=== PATIENT | male | born 1975 | race Caucasian/White ===

== ENCOUNTER 2017-05-25 06:04 | Day surgery (SDC) | payer OTHER ==
[~2017-05-25] VITALS: Ht 165.1 cm; Wt 60.3 kg
[2017-05-25] MEDS ORDERED: ZANTAC (07:07)
[2017-05-25] MEDS ORDERED: FAMOTIDINE (07:07)
--- NOTE | 2017-05-25 07:42 | OPPN ---
Date/Time of Note Date/Time of Note DATE: 05/25/17 TIME: 07:34 Operative Report Preoperative Diagnosis Abdominal pain Postoperative Diagnosis Gastritis with erosions Operation/Procedure Performed Esophagogastroduodenoscopy and biopsy Surgeon see signature line expanded function dental assistant None Anesthesia: moderate sedation Estimated blood loss: none Transfusion Required none Specimen Gastric mucosal biopsy Grafts/Implants none Complications none DONOVAN POON MD May 25, 2017 07:42
--- NOTE | 2017-05-25 07:42 | OPPN ---
Date/Time of Note Date/Time of Note DATE: 05/25/17 TIME: 07:34 Operative Report Preoperative Diagnosis Abdominal pain Postoperative Diagnosis Gastritis with erosions Operation/Procedure Performed Esophagogastroduodenoscopy and biopsy Surgeon see signature line assistance specialist None Anesthesia: moderate sedation Estimated blood loss: none Transfusion Required none Specimen Gastric mucosal biopsy Grafts/Implants none Complications none DONOVAN POON MD May 25, 2017 07:42
--- NOTE | 2017-05-25 07:42 | OPPN ---
Date/Time of Note Date/Time of Note DATE: 05/25/17 TIME: 07:34 Operative Report Preoperative Diagnosis Abdominal pain Postoperative Diagnosis Gastritis with erosions Operation/Procedure Performed Esophagogastroduodenoscopy and biopsy Surgeon see signature line recreation assistant None Anesthesia: moderate sedation Estimated blood loss: none Transfusion Required none Specimen Gastric mucosal biopsy Grafts/Implants none Complications none DONOVAN POON MD May 25, 2017 07:42
[2017-05-25] MEDS ORDERED: FENTAnyl 50 MCG/ML VIAL ONE (07:50)
[2017-05-25] MEDS ORDERED: MIDAZOLAM 1 MG/ML 2 ML INJ ONE ×2 (07:50)
[2017-05-25 08:05] VITALS: BP 99/59; PULSE 70; RESP 16
--- NOTE | 2017-05-25 09:39 | GILP ---
DATE OF PROCEDURE: NAME OF PROCEDURES: Esophagogastroduodenoscopy and biopsy. SURGEON: Donovan Delgado MD PREOPERATIVE DIAGNOSIS: Abdominal pain. POSTOPERATIVE DIAGNOSES 1. Gastritis with erosions. 2. Gastric mucosal biopsies were taken for Helicobacter pylori test. INDICATION FOR THE PROCEDURE: Mr. Ochoa Cleveland is a 41-year-old male patient who had upper abdomin al pain, not responding to therapy. The patient was scheduled for endoscopic examination for furthe r evaluation. The procedure and possible complications were well explained to the patient, he understood and conse nted to the procedure. DESCRIPTION OF PROCEDURE: Under the influence of fentanyl and Versed, the gastroscope was carefully introduced into the esophagus and under direct vision, it was advanced to the stomach and through t he pylorus into the duodenal bulb and descending duodenum. FINDINGS: ESOPHAGUS: The mucosa was normal. STOMACH: The patient had gastritis with erosions. Gastric mucosal biopsies were taken for H. pylor i test. Duodenum was normal. He tolerated the procedure very well and there was no complication from the procedure. At the end o f the procedure, he was awake with stable vital signs and he was discharged home to the care of his family. IMPRESSION: 1. Gastritis with erosions. 2. Gastric mucosal biopsies were taken for Helicobacter pylori test. PLAN: 1. Omeprazole 40 mg p.o. q.a.m. 2. Await H. pylori test report. Dictated By: DONOVAN RAMOS/ROMAN Conf#: [id number] DID#: [id number]
--- NOTE | 2017-05-26 13:22 | CONS ---
PATIENT NAME: LACIE GOULD DATE OF ADMISSION: DATE OF CONSULTATION: 05/03/2017 HISTORY OF PRESENT ILLNESS: I thank you very much for this kind referral. Mr. Lacie Friedman is a 41-year-old male patient who has been referred to me for further evaluation of upper abdominal pain and chronic heartburn not responding to therapy with Zantac. No past history of peptic ulcer disease. His appetite has been good, and he is not losing any weight. The patient went to the emergency room. He had abdominal ultrasound and CT scan done and they were normal. No history of gallstones or liver disease. No change in the bowel habits or rectal bleeding. No history of inflammatory bowel disease. Not hypertensive or diabetic. No heart disease or lung problem. No kidney disease. SOCIAL HISTORY: Nonsmoker. No alcohol abuse. FAMILY HISTORY: No family history of gastrointestinal tract neoplasm. ALLERGIES: NO DRUG ALLERGIES. MEDICATION: Zantac. PHYSICAL EXAMINATION: VITAL SIGNS: He is 5 feet 5 inches tall and weighs 125 pounds. HEART: Normal heart sounds. LUNGS: Clear. ABDOMEN: Soft. No masses. Normal bowel sounds. NEUROLOGIC: Normal neurological exam. IMPRESSION: 1. Upper abdominal pain, not responding to therapy with Zantac. 2. Patient had abdominal CT scan and ultrasound done and they were normal. PLAN: Endoscopy for further evaluation. The procedure and possible complications were well explained to the patient. He understands and consents to the procedure. I thank you once again. With warmest personal regards, Dictated By: MD RACHEL Malik/jimmy/[email or web address] f /Document#: [id number]
== END 2017-05-25 10:59 | disposition home or self-care (01) ==
LOC: GIL 06:04
PROVIDERS: ATTEND Internal Medicine Gastroenterology
DX: K29.60 Other gastritis without bleeding (principal)
CPT/HCPCS: 43239; 87081; J2250; J3010; Z7610